=== PATIENT | male | born 1985 | race Caucasian/White ===

== ENCOUNTER 2016-07-30 23:09 | Emergency (ER) ==
[2016-07-31] MEDS ORDERED: XYLOCAINE-MPF 1% INJ ONE (01:19)
[2016-07-31] MEDS ORDERED: BOOSTRIX VACCINE IM ONE (01:19)
--- NOTE | 2016-07-31 01:23 | PROVIDER DOCUMENTATION ---
HPI-Rash/Wound/ReCheck - General Source: patient <Darlene Kirkland - Last Filed: 07/31/16 01:20> - General Source: patient - History of Present Illness-Dermatology Location: reports: hands (right hand 5th digit outer side mid finger) Quality: reports: burning Severity: reports: mild Onset/Duration: reports: 1-3 hours ago Timing: reports: still present Context/Associated Symptoms: reports: incised wound Identifiable cause?: Yes Locality of Occurance: Home Similar Symptoms Previously?: No <Reilly Ramirez - Last Filed: 07/31/16 01:47> - General Chief Complaint: Laceration[s] Stated Complaint: CUT FINGER Time Seen by Provider: 07/31/16 00:56 Allergies/Adverse Reactions: Allergies Allergy/AdvReac Type Severity Reaction Status Date / Time No Known Allergies Allergy Verified 04/25/16 08:22 - History of Present Illness-Dermatology Nature of Presenting Problem: 30 y/o M cut his 5th finger with knife about 2 hours [employer]. Pt was trying to make a hole in a belt and when he pushed down the blade close cutting his hand On arrival bleeding was controlled on arrival (Reilly Ramirez) Review of Systems - Adult - REVIEW OF SYSTEMS - ADULT Constitutional: denies: chills, fever Eyes: reports: no symptoms reported Ears, Nose, Mouth & Throat: reports: no symptoms reported Cardiovascular: reports: no symptoms reported Respiratory: reports: no symptoms reported Gastrointestinal: reports: no symptoms reported Genitourinary: reports: no symptoms reported Musculoskeletal: reports: no symptoms reported Integumentary: reports: other (laceration to right hand 5th digit). denies: hives, itching, rash, skin sores/ulcer Neurological: reports: no symptoms reported Psychiatric: reports: no symptoms reported Endocrine: reports: no symptoms reported Hematologic/Lymphatic: reports: no symptoms reported Allergic/Immunologic: reports: no symptoms reported All Other Systems: Reviewed and Negative <Reilly Ramirez - Last Filed: 07/31/16 01:47> Past History - Adult - PAST MEDICAL HISTORY-ADULT Major Childhood Illnesses: reports: denies history Cardiovascular: reports: denies history Respiratory: reports: denies history Gastrointestinal: reports: denies history Obstetrical/Gynecological: reports: denies history Genitourinary: reports: denies history Musculoskeletal: reports: denies history Neurological: reports: denies history Endocrine/Immune: reports: denies history Other Conditions: reports: denies history - PRIOR SURGERIES/PROCEDURES Surgical/Procedure History: reports: reviewed, not pertinent - IMMUNIZATION STATUS Childhood Immunizations: See Nurse Assessment Flu Vaccine: See Nurse Assessment - FAMILY HISTORY Family History: reviewed, not pertinent <Darlene Kirkland - Last Filed: 07/31/16 01:20> - PAST MEDICAL HISTORY-ADULT Review of Records: reports: Old Records Reviewed, Nursing Assessment Review, Medications Reviewed - SOCIAL HISTORY Smoking: cigarettes, greater than 1 pack/day Substance Use: alcohol Alcohol Use Frequency: occasionally Living Situation: family <Reilly Ramirez - Last Filed: 07/31/16 01:47> Physical Exam-General - PHYSICAL EXAM-ADULT Initial Vital Signs Reviewed: Yes - CONSTITUTIONAL General Appearance: appears well, alert, no apparent distress - EYES Eyes: PERRL/EOMI - HEAD, EARS, NOSE, MOUTH & THROAT HENMT: moist mucous membranes, normal ENT inspection, TMs normal, pharynx normal - NECK Neck: non-tender, full range of motion, supple, normal inspection - RESPIRATORY Respiratory: lungs clear, normal breath sounds, no pleuratic chest pain, no respiratory distress - CARDIOVASCULAR Cardiovascular: normal peripheral pulses, regular rate, rhythm - GASTROINTESTINAL (ABDOMEN) Abdominal Exam: normal bowel sounds, non tender, soft - MUSCULOSKELETAL Back Exam: normal inspection, no CVA tenderness, no vertebral tenderness Extremity: normal range of motion, non-tender, normal gait. negative: normal inspection (laceratin 1cm long right hand outter side of 5th digit mid finger) - SKIN Integumentary: normal color, normal turgor, warm/dry - NEUROLOGIC Neurologic: grossly normal, no motor/sensory deficits - PSYCHIATRIC Psych/Mental Status: normal mood/affect, normal thought content, normal thought process, oriented x 3 <Reilly Ramirez - Last Filed: 07/31/16 01:47> Progress <Darlene Kirkland - Last Filed: 07/31/16 01:20> <Reilly Ramirez - Last Filed: 07/31/16 01:47> - PLAN OF CARE/RESULTS Progress/Plan/Lab Results: Orders Category Date Time Status Laceration Set up DIRECTED Care 07/31/16 01:19 Active Diph,Pertuss(Acell),Tet Vac/Pf [Boostrix Vaccine] Med 07/31/16 01:19 Discontinued 0.5 ml IM .ONCE ONE Lidocaine 1% Pf [Xylocaine-Mpf 1%] Med 07/31/16 01:19 Discontinued 5 ml INJ NOW ONE Vital Signs Temp Pulse Resp BP Pulse Ox 07/30/16 23:22 97.5 F L 86 18 123/70 98 No Known Allergies Allergy (Verified 04/25/16 08:22) Sulfamethoxazole/Trimethoprim [Bactrim Ds Tablet] 1 each PO BID #10 tablet 07/31 (Reilly Ramirez) Procedures - LACERATION/WOUND REPAIR/FB Right Hand Wound Location: Other: fifth digit Wound Length: 1cm Wound's Depth, Shape: superficial Wound Explored/Foreign Body: clean Irrigated with Saline?: Yes Anesthetic: 1%, Lidocaine/Xylocaine Volume of Anesthetic (ml's): 3 Wound Repaired with: Sutures Suture Size/Type: 4.0, Nylon Number of Sutures: 3 Layer Closure?: No Sterile Dressing Applied?: Yes (bandaid) Splint Applied?: No Sling Applied?: No Post Procedure Neurovascular Exam: Intact <Reilly Ramirez - Last Filed: 07/31/16 01:47> Departure - Departure Time of Disposition Order: 01:20 Certified Medical Emergency: Emergent <Darlene Kirkland - Last Filed: 07/31/16 01:20> <Reilly Ramirez - Last Filed: 07/31/16 01:47> - Departure DIAGNOSIS: Laceration Disposition: HOME 01 Condition: Stable Additional Instructions: Take medications as directed. Return in 10-14 days for suture removal. Tylenol or motrin for pain. RICE as needed. ED Follow Up Instructions: You have been treated by a care provider in the Emergency Department. These instructions are being provided to you so you can have an understanding of how to care for yourself upon discharge. Upon discharge from the Emergency Department, you are responsible for making arrangements for follow-up care by a physician of your choice. Take all prescribed medications as directed. Return to the Emergency Department immediately for any new or worsening symptoms. You may call the Physician Referral phone number at [phone] to obtain a list of Physicians who are taking new patients. Prescriptions: Sulfamethoxazole/Trimethoprim [Bactrim Ds Tablet] 1 each PO BID #10 tablet Referrals: None,PCP [Primary Care Provider] - Attestation - Physician/ Mid-level Attestation Patient care was provided by Mid-level provider (EVENT STAFF MEMBER/PA):: Yes Mid-level provider:: Darlene Kirkland Mid-level documentation review:: The Mid-level provider documentation, treatment plan and medical decision making was reviewed by the physician who agrees with all treatment and medical decision making by the MLP. <Darlene Kirkland - Last Filed: 07/31/16 01:20> - Scribe Verification/Attestation Scribe:: Reilly Ramirez Acting as Scribe for:: Darlene Kirkland Scribe documention review:: This chart was documented by a scribe and accurately reflects the service the provider performed and the decisions made by the provider. - Physician/ Mid-level Attestation Patient care was provided by Mid-level provider (EVENT STAFF MEMBER/PA):: Yes Mid-level provider:: Darlene Kirkland Mid-level documentation review:: The Mid-level provider documentation, treatment plan and medical decision making was reviewed by the physician who agrees with all treatment and medical decision making by the MLP. <Reilly Ramirez - Last Filed: 07/31/16 01:47> Physician Attestation
[2016-07-31] MEDS ORDERED: ZOFRAN ODT PO ONE (01:46)
[2016-07-31] MEDS ORDERED: NORCO-7.5 PO ONE (01:46)
[2016-07-31 02:08] VITALS: BP 105/60
== END 2016-07-31 02:07 | disposition home or self-care (01) ==
LOC: P.ED 23:09
DX: S61.216A Laceration without foreign body of right little finger without damage to nail, initial encounter (principal); M79.644 Pain in right finger(s); F17.210 Nicotine dependence, cigarettes, uncomplicated; Z23 Encounter for immunization; W26.0XXA Contact with knife, initial encounter
CPT/HCPCS: 90471; 90715